=== PATIENT | male | born 1990 | race Caucasian/White ===

== ENCOUNTER 2020-03-07 14:20 | Emergency (ER) | payer SELFPAY ==
--- NOTE | 2020-03-07 15:07 | EDM.PDOC ---
ED HPI GENERAL MEDICAL PROBLEM - General Stated Complaint: BUG BITES Time Seen by Provider: 03/07/20 14:45 Source of Information: Reports: Patient History Limitations: Reports: No Limitations - History of Present Illness INITIAL COMMENTS - FREE TEXT/NARRATIVE: c/o tick bites helping a friend in a junk yard 1m ago, bitten by several ticks which he removed the next day, has had red areas ever since that have been itching and gotten bigger one on abd is the largest has been scratching denies h/o asthma, hayfever or allergies no f/c/d worked in [place] 2m ago, fishing at the [employer], denies other travel or exposure - Related Data Allergies Allergy/AdvReac Type Severity Reaction Status Date / Time house dust mite Allergy Rash Verified 03/07/20 16:36 Home Meds: Home Meds Aspirin [Adult Low Dose Aspirin EC] 81 mg PO DAILY 03/07/20 [History] Doxycycline [Vibra-Tabs] 100 mg PO BID #28 tab 03/07/20 [Rx] amLODIPine [Norvasc] 5 mg PO ASDIRECTED #21 tablet 03/07/20 [Rx] predniSONE 20 mg PO ASDIRECTED #7 tab 03/07/20 [Rx] ED ROS GENERAL - Review of Systems Review Of Systems: See Below Constitutional: Reports: No Symptoms HEENT: Reports: No Symptoms Respiratory: Reports: No Symptoms Cardiovascular: Reports: No Symptoms Endocrine: Reports: No Symptoms GI/Abdominal: Reports: No Symptoms : Reports: No Symptoms Musculoskeletal: Reports: No Symptoms Skin: Reports: Pruritis, Rash Neurological: Reports: No Symptoms Psychiatric: Reports: No Symptoms Hematologic/Lymphatic: Reports: No Symptoms Immunologic: Reports: No Symptoms ED EXAM, SKIN/RASH Exam: See Below Exam Limited By: No Limitations General Appearance: Alert, WD/WN, No Apparent Distress Ears: Hearing Grossly Normal Nose: Normal Inspection, Normal Mucosa, No Blood Throat/Mouth: Normal Inspection, Normal Teeth, Normal Voice Head: Atraumatic Neck: Normal Inspection, Supple, Non-Tender, Full Range of Motion. No: Lymphadenopathy (R), Lymphadenopathy (L) Respiratory/Chest: No Respiratory Distress, Lungs Clear, Normal Breath Sounds, Chest Non-Tender Cardiovascular: Regular Rate, Rhythm, No Edema, No Murmur, No Rub GI/Abdominal: Normal Bowel Sounds, Soft, Non-Tender, No Distention Back Exam: Normal Inspection, Full Range of Motion Extremities: Normal Inspection, Normal Range of Motion, No Pedal Edema Neurological: Alert, Oriented, CN II-XII Intact, Normal Cognition, Normal Gait, No Motor/Sensory Deficits Psychiatric: Normal Affect Skin: Other (immediate bright red dermatographism to even light touch of skin, several 5 mm papules with 2 mm elevation most c/w excoriation, skin intact, slight irregular, no vasculitis, no petechiae, no LNs, on mid abd there is a larger 10 cm mildly elevated red papule around a break in the skin that appears to be excoriated, no warm or evidence of infection) Lymphatic: No Adenopathy Course - Vital Signs Last Recorded V/S: Last Vital Signs Temp 36.7 C 03/07/20 14:33 Pulse 105 H 03/07/20 15:54 Resp 16 03/07/20 15:54 BP 204/140 H 03/07/20 15:54 Pulse Ox 100 03/07/20 15:54 - Orders/Labs/Meds Orders: Active Orders 24 hr Category Date Time Status LYME (B. BURGDORFERI) PCR Stat Lab 03/07/20 16:14 Ordered Labs: Laboratory Tests 03/07/20 03/07/20 03/07/20 Range/Units 15:15 15:15 15:15 WBC 6.8 (4.5-12.0) X10-3/uL RBC 5.76 H (4.30-5.75) x10(6)uL Hgb 16.2 (13.5-17.8) g/dL Hct 49.5 (30.0-51.3) % MCV 85.9 (80-96) fL MCH 28.1 (27.7-33.6) pg MCHC 32.7 (32.2-35.4) g/dL RDW 12.8 (11.5-15.5) % Plt Count 304 (125-369) X10(3)uL MPV 7.0 L (7.4-10.4) fL Neut % (Auto) 61.1 (46-82) % Lymph % (Auto) 25.9 (13-37) % [place] % (Auto) 7.3 (4-12) % Eos % (Auto) 5 (1.0-5.0) % Baso % (Auto) 1 (0-2) % Neut # (Auto) 4.2 (1.6-8.3) # Lymph # (Auto) 1.8 (0.6-5.0) # [place] # (Auto) 0.5 (0.0-1.3) # Eos # (Auto) 0.3 (0.0-0.8) # Baso # (Auto) 0.0 (0.0-0.2) # Sodium 138 (135-145) mmol/L Potassium 3.7 (3.5-5.3) mmol/L Chloride 101 (100-110) mmol/L Carbon Dioxide 30 (21-32) mmol/L BUN 7 (7-18) mg/dL Creatinine 1.1 (0.70-1.30) mg/dL Est Cr Clr Drug Dosing TNP Estimated GFR (MDRD) > 60 (>60) BUN/Creatinine Ratio 6.4 L (9-20) Glucose 105 (80-116) mg/dL Calcium 9.6 (8.6-10.2) mg/dL Total Bilirubin 1.0 (0.1-1.3) mg/dL AST 66 H (5-25) IU/L ALT 153 H* (12-36) U/L Alkaline Phosphatase 142 H (56-112) IU/L C-Reactive Protein < 0.2 L (0.5-0.9) mg/dL Total Protein 8.1 H (6.0-8.0) g/dL Albumin 4.4 (3.5-5.2) g/dL Globulin 3.7 g/dL Albumin/Globulin Ratio 1.2 - Re-Assessments/Exams Free Text/Narrative Re-Assessment/Exam: 03/07/20 17:01 pt had been lis and metoprolol in past, stopped 5y ago, worried re side effects, we had a long discussion re how he would in 10y from HF if he did not tx his BP, repeat 204/140 he did tentatively agree to take a BP med and I sent in amlodipine 5/d x 1w, then 10/d x 1 more wk pending d/w PCP pt may be more likely to take a different BP med then in the past altho he was told it was very likely he would need a 2nd BP med pharmacist Adenike at [facility] was called and agreed to reinforce the need to take BP meds Lyme seems unlikely, no target lesion, distribution and dermatographism both c/w allergic reaction from scratching, yet will give doxy 100 mg bid x 2w as a precaution, Lyme test pending Departure - Departure Time of Disposition: 16:32 Disposition: Home, Self-Care 01 Condition: Good, Fair Clinical Impression: Rash, Allergic dermatitis, Uncontrolled hypertension, Elevated liver function tests, Elevated total protein - Discharge Information *PRESCRIPTION DRUG MONITORING PROGRAM REVIEWED*: Not Applicable *COPY OF PRESCRIPTION DRUG MONITORING REPORT IN PATIENT CIARA: Not Applicable Prescriptions: amLODIPine [Norvasc] 5 mg PO ASDIRECTED #21 tablet predniSONE 20 mg PO ASDIRECTED #7 tab Doxycycline [Vibra-Tabs] 100 mg PO BID #28 tab Instructions: Liver Function Tests, Preventing Hypertension, Managing Your Hypertension, Hypertension, Adult Referrals: PCP,None [Primary Care Provider] - Forms: ED Department Discharge Additional Instructions: For possible tick borne infection, including Lyme, take doxycyline 100 mg 1 tab 2 times a day for 14 days. For allergic component to the rash, take prednisone 20 mg 2 tabs today and tomorrow, then 1 tab daily for 5 days. For very high blood pressure, take amlodipine 5 mg 1 tab daily for 1 week, then 2 tabs daily for the next week, then get additional refills from your primary care physician. Mandy Mansfield sees patients at [address] [place] [address] in [place]. She is quite good. Appointments to see her can be made at . See Mandy or another primary care physician in 5 days to f/u your rash, your Lyme test, your blood pressure and your abnormal liver tests. Return to Emergency Department at any time if you are feeling worse. Thank you for your patience today! Sepsis Event Note (ED) - Focused Exam Vital Signs: Vital Signs Temp Pulse Resp BP Pulse Ox 03/07/20 15:54 105 H 16 204/140 H 100 03/07/20 14:33 36.7 C 125 H 16 210/149 H 100 - My Orders Last 24 Hours: My Active Orders 03/07/20 16:14 LYME (B. BURGDORFERI) PCR Stat - Assessment/Plan Last 24 Hours: My Active Orders 03/07/20 16:14 LYME (B. BURGDORFERI) PCR Stat
== END 2020-03-07 17:10 | disposition home or self-care (01) ==
LOC: FB.ED 14:20
DX: L23.9 Allergic contact dermatitis, unspecified cause (principal); I10 Essential (primary) hypertension; R79.89 Other specified abnormal findings of blood chemistry; R74.8 Abnormal levels of other serum enzymes; Z79.82 Long term (current) use of aspirin; Z79.899 Other long term (current) drug therapy
CPT/HCPCS: 36415; 80053; 85025; 86140; 87476; 99283

== ENCOUNTER 2021-01-31 19:23 | Emergency (ER) | payer SELFPAY ==
[2021-01-31] MEDS ORDERED: Sodium Chloride 0.9% 10 ML Syringe FLUSH PRN (19:56)
[2021-01-31] MEDS ORDERED: Sodium Chloride 0.9% 1,000 ML IV SCH (20:00)
[2021-01-31] MEDS ORDERED: Potassium Chloride 20 MEQ Tab.ER PO STA (20:31)
--- NOTE | 2021-01-31 20:41 | EDM.PDOC ---
ED HPI GENERAL MEDICAL PROBLEM - General Chief Complaint: Exposure to Heat or Cold Stated Complaint: POSSIBLE HEAT EXHAUSTION Time Seen by Provider: 01/31/21 19:35 Source of Information: Reports: Patient History Limitations: Reports: No Limitations - History of Present Illness INITIAL COMMENTS - FREE TEXT/NARRATIVE: Patient presented to the ED because of nausea,diaphoresis and weakness after working under the sun all day. Upon triage, he was found to be in hypertensive crisis although he denies having any headache, chest pain, dyspnea, or any neuro symptoms. He has a history of HTN but quit taking his 2 antihypertensives for unknown reason. - Related Data Allergies Allergy/AdvReac Type Severity Reaction Status Date / Time house dust mite Allergy Rash Verified 03/07/20 16:36 Home Meds: Home Meds Aspirin [Adult Low Dose Aspirin EC] 81 mg PO DAILY 03/07/20 [History] Labetalol 20 mg IV ASDIRECTED #1 syringe 01/31/21 [Rx] Potassium Chloride [Klor-Con M20] 40 meq PO TID #6 tab.er 01/31/21 [Rx] amLODIPine Besylate [Amlodipine Besylate] 10 mg PO DAILY #90 tablet 01/31/21 [Rx] hydrOXYzine pamoate [Vistaril] 50 mg PO Q8H PRN #30 cap 01/31/21 [Rx] Past Medical History Cardiovascular History: Reports: Hypertension Psychiatric History: Reports: Anxiety - Past Surgical History Cardiovascular Surgical History: Reports: None Social & Family History - Family History Family Medical History: No Pertinent Family History - Tobacco Use Tobacco Use Status *Q: Current Every Day Tobacco User Years of Tobacco use: 14 Packs/Tins Daily: 0.4 - Caffeine Use Caffeine Use: Reports: Energy Drinks - Alcohol Use Days Per Week of Alcohol Use: 4 Number of Drinks Per Day: 6 Total Drinks Per Week: 24 - Recreational Drug Use Recreational Drug Use: No ED ROS GENERAL - Review of Systems Review Of Systems: See Below Constitutional: Reports: Weakness HEENT: Reports: No Symptoms Respiratory: Reports: No Symptoms Cardiovascular: Reports: No Symptoms Endocrine: Reports: No Symptoms GI/Abdominal: Reports: No Symptoms : Reports: No Symptoms Musculoskeletal: Reports: No Symptoms Skin: Reports: No Symptoms Neurological: Reports: No Symptoms Psychiatric: Reports: No Symptoms Hematologic/Lymphatic: Reports: No Symptoms ED EXAM, GENERAL - Physical Exam Exam: See Below Exam Limited By: No Limitations General Appearance: Alert, No Apparent Distress Eye Exam: Bilateral Eye: PERRL Ears: Normal External Exam, Normal Canal Nose: Normal Inspection, Normal Mucosa, No Blood Throat/Mouth: Normal Inspection, Normal Lips Head: Atraumatic, Normocephalic Neck: Normal Inspection, Supple, Non-Tender Respiratory/Chest: No Respiratory Distress, Lungs Clear, Normal Breath Sounds Cardiovascular: Normal Peripheral Pulses, Regular Rate, Rhythm, No Edema GI/Abdominal: Normal Bowel Sounds, Soft, Non-Tender, No Organomegaly Back Exam: Normal Inspection, Full Range of Motion Extremities: Normal Inspection, Normal Range of Motion, Non-Tender Neurological: Alert, Oriented, CN II-XII Intact, Normal Cognition Psychiatric: Normal Affect Course - Vital Signs Text/Narrative:: Lab result was reviewed and discussed with patient NS 1 L bolus Lasix 40 mg IV x1 Hydralazine 20 mg IV x2 doses Labetalol 20 mg IV x 2 doses Clonidine 0.2 mg PO x1 Amlodipine 10 mg PO x1 Last Recorded V/S: Last Vital Signs Temp 37.6 C 01/31/21 19:33 Pulse 94 01/31/21 22:50 Resp 22 H 01/31/21 19:33 BP 166/108 H 01/31/21 22:50 Pulse Ox 98 01/31/21 19:33 - Orders/Labs/Meds Orders: Active Orders 24 hr Category Date Time Status Saline Lock Insert [OM.PC] Routine Oth 01/31/21 19:56 Ordered Labs: Laboratory Tests 01/31/21 01/31/21 Range/Units 20:05 20:05 WBC 13.0 H (3.2-10.1) x10-3/uL RBC 5.36 (3.90-5.90) x10(6)uL Hgb 15.7 (12.9-17.7) g/dL Hct 47.2 (38.3-50.1) % MCV 88.0 (80.8-98.7) fL MCH 29.4 (27.0-33.3) pg MCHC 33.4 (28.7-35.3) g/dL RDW 13.8 (12.4-15.0) % Plt Count 336 (117-477) x10(3)uL MPV 7.1 (6.7-11.0) fL Neut % (Auto) 72.0 H (40.3-71.8) % Lymph % (Auto) 19.9 (15.8-45.3) % [place] % (Auto) 6.9 (5.5-15.2) % Eos % (Auto) 0.7 (0.1-6.8) % Baso % (Auto) 0.5 (0.3-3.8) % Neut # (Auto) 9.4 H (1.7-6.9) x10-3/uL Lymph # (Auto) 2.6 (0.5-4.5) x10-3/uL [place] # (Auto) 0.9 (0.0-1.2) x10-3/uL Eos # (Auto) 0.1 (0.0-0.6) x10-3/uL Baso # (Auto) 0.1 (0.0-0.3) x10-3/uL Sodium 141 (135-145) mmol/L Potassium 3.3 L (3.5-5.3) mmol/L Chloride 101 (100-110) mmol/L Carbon Dioxide 27 (21-32) mmol/L BUN 12 (7-18) mg/dL Creatinine 1.1 (0.70-1.30) mg/dL Est Cr Clr Drug Dosing TNP Estimated GFR (MDRD) > 60 (>60) BUN/Creatinine Ratio 10.9 (9-20) Glucose 107 (80-116) mg/dL Calcium 8.8 (8.6-10.2) mg/dL Meds: Medications Discontinued Medications Generic Name Dose Route Start Last Admin Trade Name Bunnyq PRN Reason Stop Dose Admin Amlodipine Besylate 10 mg 01/31/21 20:53 01/31/21 21:03 Amlodipine 10 Mg Tab PO 01/31/21 20:54 10 mg NOW STA Administration Clonidine HCl 0.2 mg 01/31/21 22:26 01/31/21 22:31 Clonidine 0.1 Mg Tab PO 01/31/21 22:27 0.2 mg NOW STA Administration Furosemide 40 mg 01/31/21 21:45 01/31/21 21:55 Furosemide 40 Mg/4 Ml Vial IVPUSH 01/31/21 21:46 40 mg NOW ONE Administration Hydralazine HCl 20 mg 01/31/21 21:45 01/31/21 21:55 Hydralazine 20 Mg/Ml Sdv IVPUSH 01/31/21 21:46 20 mg NOW STA Administration Hydralazine HCl 20 mg 01/31/21 22:26 01/31/21 22:31 Hydralazine 20 Mg/Ml Sdv IVPUSH 01/31/21 22:27 20 mg NOW STA Administration Sodium Chloride 1,000 mls @ 999 mls/hr 01/31/21 20:00 01/31/21 20:06 Normal Saline IV 999 mls/hr ASDIRECTED JED Administration Labetalol HCl 20 mg 01/31/21 20:51 01/31/21 21:03 Labetalol 20 Mg/4 Ml Syringe IVPUSH 01/31/21 20:52 20 mg NOW STA Administration Protocol Labetalol HCl 20 mg 01/31/21 21:26 01/31/21 21:28 Labetalol 20 Mg/4 Ml Syringe IVPUSH 01/31/21 21:27 20 mg ONETIME ONE Administration Protocol Potassium Chloride 40 meq 01/31/21 20:31 01/31/21 20:46 Potassium Chloride 20 Meq Tab.Er PO 01/31/21 20:32 40 meq NOW STA Administration Sodium Chloride 10 ml 01/31/21 19:56 01/31/21 22:31 Sodium Chloride 0.9% 10 Ml Syringe FLUSH 10 ml ASDIRECTED PRN Administration Keep Vein Open Departure - Departure Time of Disposition: 21:30 Disposition: Home, Self-Care 01 Condition: Good Clinical Impression: Heat exhaustion, Hypokalemia, Dehydration, Hypertensive crisis - Discharge Information Prescriptions: amLODIPine Besylate [Amlodipine Besylate] 10 mg PO DAILY #90 tablet Potassium Chloride [Klor-Con M20] 40 meq PO TID #6 tab.er Labetalol 20 mg IV ASDIRECTED #1 syringe hydrOXYzine pamoate [Vistaril] 50 mg PO Q8H PRN #30 cap PRN Reason: Anxiety Instructions: Heat Exhaustion, Hypokalemia, Dehydration, Adult, [id number], Hypertension, Adult Referrals: PCP,None [Primary Care Provider] - Forms: ED Department Discharge Additional Instructions: Please read discharge instructions on hypertensive crisis, heat exhaustion, hypokalemia, dehydration Drink 2-4 liters of water daily if you work under the [employer] 20 meq, 2 tablets 3 times daily for 1 day Vistaril 50 mg Ever8 hours as needed for anxiety Amlodipine 10 mg daily. NEVER EVER QUIT TAKING YOUR BP MEDS EVEN IF YOU HAVE A NORMAL BP BECAUSE YOU WILL DEVELOP WHAT WE CALL REBOUND MALIGNANT HYPERTENSION WHICH IS LIFE THREATENING. Follow up with your doctor in a week to see if your amlodipine is working or not. Sepsis Event Note (ED) - Evaluation Sepsis Screening Result: No Definite Risk - Focused Exam Vital Signs: Vital Signs Temp Pulse Resp BP BP Pulse Ox 01/31/21 22:50 94 166/108 H 01/31/21 22:40 104 H 172/116 H 01/31/21 22:31 162/115 H 01/31/21 22:30 102 H 162/115 H 01/31/21 22:20 95 169/113 H 01/31/21 22:10 168/116 H 01/31/21 22:05 186/128 H 01/31/21 21:50 187/128 H 01/31/21 21:45 198/133 H 01/31/21 21:40 188/129 H 01/31/21 21:30 195/135 H 01/31/21 21:25 190/136 H 01/31/21 21:20 124 H 186/134 H 01/31/21 21:15 195/144 H 01/31/21 21:10 222/154 H 01/31/21 21:03 239/152 H 01/31/21 20:50 111 H 239/152 H 01/31/21 19:33 37.6 C 140 H 22 H 215/175 H 98 - My Orders Last 24 Hours: My Active Orders 01/31/21 19:56 Saline Lock Insert [OM.PC] Routine - Assessment/Plan Last 24 Hours: My Active Orders 01/31/21 19:56 Saline Lock Insert [OM.PC] Routine
[2021-01-31] MEDS ORDERED: Labetalol 20 MG/4 ML Syringe IVPUSH STA (20:51)
[2021-01-31] MEDS ORDERED: amLODIPine 10 MG Tab PO STA (20:53)
[2021-01-31] MEDS ORDERED: Labetalol 20 MG/4 ML Syringe IVPUSH ONE (21:26)
[2021-01-31] MEDS ORDERED: Furosemide 40 MG/4 ML VIAL IVPUSH ONE (21:45)
[2021-01-31] MEDS ORDERED: hydrALAZINE 20 MG/ML SDV IVPUSH STA ×2 (21:45→22:26)
[2021-01-31] MEDS ORDERED: cloNIDine 0.1 MG Tab PO STA (22:26)
== END 2021-01-31 23:00 | disposition home or self-care (01) ==
LOC: FB.ED 19:23
DX: T67.5XXA Heat exhaustion, unspecified, initial encounter (principal); E86.0 Dehydration; E87.6 Hypokalemia; I16.9 Hypertensive crisis, unspecified; I10 Essential (primary) hypertension; Z79.82 Long term (current) use of aspirin; Z91.048 Other nonmedicinal substance allergy status
CPT/HCPCS: 36415; 80048; 85025; 96374; 96375; 96376; 99284-25; A9270-GY; J0360; J1940; J3490; J7030